=== PATIENT | male | born 1965 | race Caucasian/White ===

== ENCOUNTER 2024-12-06 15:47 | Emergency (ER) | payer SELFPAY ==
[2024-12-06] VITALS (14 sets, daily range): BP systolic 116–134; BP diastolic 62–78; PULSE 74–92; RESP 14–25; TEMP 36.8; O2SAT 96–100; BMI 27.8
[2024-12-06 16:31] LABS: INR 2.3 (0.9-1.3)
[2024-12-06 16:34] LABS: Hematocrit 25.8 % (41-53); Hemoglobin 8.2 g/dL (13.5-17.5); Mean Corpuscular HGB Conc 31.7 % (30-36); Mean Corpuscular Hemoglobin 19.2 PG (26-34); Mean Corpuscular Volume 60.6 fL (80-100); Platelet Count 408 X10^3/uL (150-400); Red Blood Cell Count 4.25 X10^6/uL (4.5-5.9); Red Cell Distribution Width 21.1 % (11.6-14.8); White Blood Cell Count 7.7 X10^3/uL (4.5-11.0)
[2024-12-06 16:35] LABS: Albumin 3.4 g/dL (3.5-5.0); Alkaline Phosphatase 230 U/L (38-126); Blood Urea Nitrogen 9 mg/dL (9-20); Calcium 8.3 mg/dL (8.4-10.2); Carbon Dioxide 26 mmol/L (22-32); Chloride 102 mmol/L (98-107); Estimated Glomerular Filt Rate > 60 mL/min (>60); Globulin 3.4 g/dL (1.7-4.1); Glucose 156 mg/dL (70-100); HEMOLYSIS < 15 (0-50); Lipase 339 U/L (23-300); Potassium 2.8 mmol/L (3.4-5.1); Sodium 135 mmol/L (137-145); Total Protein 6.8 g/dL (6.3-8.2)
[2024-12-06 16:37] LABS: Add Manual Diff / Slide Review YES
[2024-12-06 16:41] LABS: Alanine Aminotransferase 1173 IU/L (<50); Aspartate Aminotransferase 1319 IU/L (17-59); PTT Partial Thromboplastin Tim 37 SECONDS (25.1-36.5)
[2024-12-06 16:51] LABS: Neutrophils Absolute Manual 4697 /uL (3000-5900); Total Cells Counted 100
[2024-12-06 16:53] LABS: Anisocytosis 2+; Hypochromasia 3+; Microcytosis 3+; Smudge Cells 1+; Target Cells 3+; Toxic Granulation Present
[2024-12-06 16:54] LABS: Acanthocytes 1+; Hypersegmented Neutrophils 1+; Ovalocytes 1+; Schistocytes 1+; Tear Drop Cells 1+
[2024-12-06 16:55] LABS: Rouleaux 1+
[2024-12-06 16:56] LABS: Toxic Vacuolation Present
--- NOTE | 2024-12-06 17:12 | EKG_ITS ---
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
--- NOTE | 2024-12-06 17:25 | DI.US.S_ITS ---
PROCEDURE: US ABDOMEN LIMITED INDICATIONS: elevated bili and liver enzymes TECHNIQUE: Real-time focused scanning was performed of the abdomen, with image documentation. COMPARISON: None. FINDINGS: Liver measures 15 cm. Increased heterogeneous hepatic echotexture. Mildly distended main portal vein at 1.6 cm. Cholelithiasis. No sonographic Schaeffer sign. CBD measures 4 mm. Pancreas not well seen due to bowel gas. Right renal cyst without complicated component measuring 2.9 x 2.7 cm. IMPRESSION: Cholelithiasis without sonographic Schaeffer sign. No biliary ductal dilation by ultrasound. Increased hepatic echotexture with heterogeneous parenchyma and distended main portal vein, findings suggestive of hepatocellular disease and high portal pressures. Dictated by: Aditya Ledesma M.D. on 12/06/2024 at 18:27 Approved by: Aditya Ledesma M.D. on 12/06/2024 at 18:29
--- NOTE | 2024-12-06 17:25 | DI.CT.S_ITS ---
PROCEDURE: CT ABDOMEN PELVIS W CON INDICATIONS: elevated bili TECHNIQUE: After the administration of intravenous contrast, axial sections acquired from the lung bases to the pubic symphysis. Coronal and sagittal reformats were performed. For radiation dose reduction, the following was used: automated exposure control, adjustment of mA and/or kV according to patient size. COMPARISON: [facility], US ABDOMEN LIMITED, 12/06/2024, 17:38. FINDINGS: Image quality: Diagnostic Lower chest: Lung bases are unremarkable. Mild atelectasis in the middle lobe. Normal heart size. Liver: Periportal edema. No focal liver lesion identified. Gallbladder and biliary system: Distended gallbladder with cholelithiasis. No biliary ductal dilation. Pancreas: No ductal dilation. There is no discrete mass. Small duodenal diverticulum is seen adjacent to the ampulla Spleen: Prominent at 12-13 cm Adrenals: No discrete nodules Kidneys: No solid mass. No hydronephrosis. Scattered renal cysts. No obstructing calcified stone Vessels and lymph nodes: The main portal vein appears patent. No abdominal aortic aneurysm. Mildly enlarged upper abdominal lymph nodes for example portal caval node measures 1.4 cm. There are mildly enlarged pelvic lymph nodes for example right external iliac chain measures 1.2 cm. Bowel and peritoneum: Mildly distended stomach. No small bowel obstruction. No pathologic ascites or drainable abscess. There is a rectal anal mass. Mildly enlarged perirectal lymph nodes are also seen. Body wall: [id number] bilateral fat containing inguinal hernias. Pelvis: Distended urinary bladder. Heterogeneous mildly enlarged prostate not well assessed on CT. Bones: There are degenerative changes. Enthesopathy at the iliac crests IMPRESSION: Rectal anal mass is suggestive of malignancy. Direct visualization is sampling recommended. There are suspicious upper abdominal and pelvic lymph nodes on the right. There is no discrete liver lesion identified on CT, however there is nonspecific periportal edema which could be seen with hepatitis and hepatocellular disease. No definite biliary ductal dilation. Small duodenal diverticulum is seen adjacent to the ampulla, does not appear obstructing. Other findings above. Dictated by: Aditya Ledesma M.D. on 12/06/2024 at 18:59 Approved by: Aditya Ledesma M.D. on 12/06/2024 at 19:04
[2024-12-06 17:40] LABS: Acetaminophen < 10 ug/mL (10-30); Ethanol (ETOH) < 10 mg/dL
--- NOTE | 2024-12-06 19:16 | DI.MRI.S_ITS ---
PROCEDURE: MR ABDOMEN WO/W CON INDICATIONS: elevated lft's rectal mass, ? ca vs choledocho TECHNIQUE: Coronal HASTE, axial 2D FLASH in- and [id number]; axial breath-hold T2 FSE. Dynamic axial VIBE during the administration of contrast; post-contrast coronal VIBE or 2D FLASH with fat saturation from the hepatic dome to the iliac crests. Optional diffusion weighted imaging and ADC may be performed. COMPARISON: [facility], CT, CT ABDOMEN PELVIS W CON, 12/06/2024, 18:19. FINDINGS: Image quality: Diagnostic Lower chest: No basal effusions Liver: No focal suspicious lesion. Diffuse periportal edema is seen. Gallbladder and biliary system: Gallbladder is distended with a gallstone. CBD does not appear dilated . Pericholecystic edema is seen. The intrahepatic biliary system is mildly prominent. There is a small duodenal diverticulum adjacent to the ampulla Pancreas: No ductal dilation. Spleen: Prominent at 12 cm Adrenals: No discrete nodules Kidneys: Scattered renal cysts. No solid renal mass. No hydronephrosis. Vessels and lymph nodes: No abdominal aortic aneurysm. There are prominent upper abdominal lymph nodes which are indeterminate in the setting of probable malignancy elsewhere. Bowel and peritoneum: No evidence of small bowel obstruction. No pathologic ascites. Body wall: Unremarkable Bones: No suspicious osseous enhancement. IMPRESSION: Cholelithiasis with gallbladder distention and pericholecystic edema. These could be seen with cholecystitis, although no sonographic Schaeffer sign was seen on recent ultrasound. HIDA scan could clarify. Overall CBD is nondilated. However there is mildly prominent appearance of the intrahepatic biliary system, no discrete obstructing mass seen on MRI. ERCP can further evaluate if clinically necessary There is also nonspecific periportal edema which can be seen with hepatocellular disease Other findings above. Dictated by: Aditya Ledesma M.D. on 12/06/2024 at 21:19 Approved by: Aditya Ledesma M.D. on 12/06/2024 at 21:29
--- NOTE | 2024-12-06 19:16 | ED_ITS ---
HPI - General Adult General Chief complaint: Weakness Stated complaint: skin is turning yellow Time Seen by Provider: 12/06/24 18:10 Source: patient, RN notes reviewed and old records reviewed Mode of arrival: Ambulatory Limitations: no limitations History of Present Illness HPI narrative: 59-year-old male history of alcohol use patient states he was decreased has not amount to 3 to 5 times a week in the past year with no other known medical issues presents with complaint of painless jaundice. Patient states his boss noticed today that he was sort of yellow. He states no fever he was occasionally had some chills, no nausea or vomiting. No abdominal pain, no back or flank pain. No chest pain or shortness of breath. He states he had been little bit constipated has not noted changes to bowel movements in terms of color. He has had fatigue and decreased energy. No swelling of extremities. States his knees felt a little bit itchy but he has not had any itchiness overall. States no daily prescription medications. Has not seen a doctor in several years. Had a history of radial nerve surgery 10 or 12 years ago. She was tobacco, states he drinks alcohol 3 or 5 times weekly used to drink 4 5 beers daily until about a year ago. No recreational drugs other than occasional marijuana. He does not have a care physician. Related Data Home Medications Medication Instructions Recorded Confirmed ASPIRIN (Aspirin) 324 mg PO PRN ##0 03/12/10 Allergies Allergy/AdvReac Type Severity Reaction Status Date / Time No Known Drug Allergies Allergy Verified 12/06/24 20:04 Review of Systems Review of Systems ROS Unobtainable: All systems reviewed & are unremarkable except as noted in HPI and below Patient History tobacco type: smokeless tobacco Exam Narrative Exam Narrative: GENERAL: Alert and oriented x three, jaundiced male in no acute distress HEENT: Head normocephalic, atraumatic, EOMI, pupils reactive, face symmetric, moist mucous membranes NECK: Supple, full range of motion CARDIOVASCULAR: Regular rate and rhythm without murmurs, rubs or gallops. RESPIRATORY: Breath sounds equal bilaterally, no wheezes rales or rhonchi. ABDOMEN: Soft, nontender. Normoactive bowel sounds all 4 quadrants. No guarding or rebound, rigidity, no mass : No CVA tenderness EXTREMITIES: Normal range of motion, no clubbing or edema. Neurovascularly intact NEUROLOGICAL: Cranial nerves II through XII grossly intact. Moving all extremities SKIN: Warm, dry, no petechiae, no rashes or lesions. Initial Vital Signs Initial Vital Signs: Vital Signs Temperature 98.3 F 12/06/24 15:54 Pulse Rate 91 H 12/06/24 15:54 Respiratory Rate 14 12/06/24 15:54 Blood Pressure 134/62 12/06/24 15:54 Pulse Oximetry 100 12/06/24 15:54 Oxygen Delivery Method Room Air 12/06/24 15:54 Course Orders Ordered: ED Orders 12/06/24 22:18 Consult to INGREDIENT HANDLER - Software Business Analyst Stat Discontinued Medications Ondansetron HCl (Ondansetron 4 Mg/2 Ml Inj) 4 mg IV NOW PRN PRN Reason: Nausea And Vomiting Ondansetron HCl (Ondansetron 4 Mg Odt) 4 mg PO NOW PRN PRN Reason: Nausea And Vomiting Potassium Chloride (Potassium Chloride 20 Meq Tab) 40 meq PO NOW ONE Stop: 12/06/24 19:39 Last Admin: 12/06/24 20:43 Dose: 40 meq Documented By: MICHELLE Vital Signs Vital signs: Vital Signs - 8 hr 12/06/24 20:46 12/06/24 20:47 12/06/24 20:47 Temperature Pulse Rate 90 92 H Respiratory Rate Blood Pressure 123/78 Pulse Oximetry 97 98 12/06/24 21:00 12/06/24 21:00 12/06/24 21:30 Temperature Pulse Rate 82 80 Respiratory Rate 19 17 Blood Pressure 123/76 Pulse Oximetry 99 99 12/06/24 21:30 12/06/24 22:00 12/06/24 22:00 Temperature Pulse Rate 78 Respiratory Rate 16 Blood Pressure 126/74 126/78 Pulse Oximetry 98 12/06/24 22:28 Temperature 98.2 F Pulse Rate Respiratory Rate Blood Pressure Pulse Oximetry Medical Decision Making Lab Data 12/06/24 16:05 12/06/24 16:05 Labs: Lab Results 12/06/24 Range/Units 16:05 WBC 7.7 (4.5-11.0) X10^3/uL RBC 4.25 L (4.5-5.9) X10^6/uL Hgb 8.2 L (13.5-17.5) g/dL Hct 25.8 L (41-53) % MCV 60.6 L (80-100) fL MCH 19.2 L (26-34) PG MCHC 31.7 (30-36) % RDW 21.1 H (11.6-14.8) % Plt Count 408 H (150-400) X10^3/uL Neut % (Auto) Not Reportable Lymph % (Auto) Not Reportable [place] % (Auto) Not Reportable Eos % (Auto) Not Reportable Baso % (Auto) Not Reportable Lymph # (Auto) Not Reportable [place] # (Auto) Not Reportable Baso # (Auto) Not Reportable Total Counted 100 Seg Neutrophils % 61.0 (38-70) % Lymphocytes % (Manual) 17.0 L (25-45) % Atypical Lymphs % 5.0 H ( - 0) % Monocytes % (Manual) 10.0 (2-11) % Eosinophils % (Manual) 7.0 H (2-4) % Neutrophils # (Manual) 4697 (1334-7885) /uL Hypersegmented Neuts 1+ Smudge Cells 1+ H Toxic Granulation Present H Toxic Vacuolation Present H Plt Morphology Comment RBC Morphology See below Hypochromasia 3+ H Anisocytosis 2+ H Microcytosis 3+ H Target Cells 3+ H Tear Drop Cells 1+ H Ovalocytes 1+ H Acanthocytes (Spur) 1+ Rouleaux 1+ H Schistocytes 1+ H PT 26.0 H (9.4-12.5) SECONDS INR 2.3 H (0.9-1.3) APTT 37 H (25.1-36.5) SECONDS Sodium 135 L (137-145) mmol/L Potassium 2.8 L (3.4-5.1) mmol/L Chloride 102 (98-107) mmol/L Carbon Dioxide 26 (22-32) mmol/L BUN 9 (9-20) mg/dL Creatinine 0.69 (0.66-1.25) mg/dL Estimated GFR > 60 (>60) mL/min BUN/Creatinine Ratio 13.0 (6-22) Glucose 156 H (70-100) mg/dL Calcium 8.3 L (8.4-10.2) mg/dL Total Bilirubin 20.0 H (0.2-1.3) mg/dL AST 1319 H (17-59) IU/L ALT 1173 H (<50) IU/L Alkaline Phosphatase 230 H (38-126) U/L Total Protein 6.8 (6.3-8.2) g/dL Albumin 3.4 L (3.5-5.0) g/dL Globulin 3.4 (1.7-4.1) g/dL Albumin/Globulin Ratio 1.0 (1.0-2.8) Lipase 339 H (23-300) U/L Acetaminophen < 10 (10-30) ug/mL Ethyl Alcohol < 10 ( - 10) mg/dL Urine Dip Bedside Urine Glucose Negative Bedside Urine Bilirubin - Negative Bedside Urine Ketone - Negative Urine Specific Colon 1.015 Bedside Urine Occult Blood - Negative Bedside Urine pH 7.0 Bedside Urine Protein - Negative Bedside Urine Urobilinogen - Negative Bedside Urine Nitrite - Negative Bedside Urine Leukocytes - Negative Esterase Point of care testing: Urine Dip Bedside Urine Glucose Negative Bedside Urine Bilirubin - Negative Bedside Urine Ketone - Negative Urine Specific Colon 1.015 Bedside Urine Occult Blood - Negative Bedside Urine pH 7.0 Bedside Urine Protein - Negative Bedside Urine Urobilinogen - Negative Bedside Urine Nitrite - Negative Bedside Urine Leukocytes - Negative Esterase ECG Data Attestation: I personally reviewed and interpreted this ECG as follows: Interpretation: Sinus rhythm rate of 76 AL 160 QRS 88 QTC of [address] elevation or depression. MDM Narrative Medical decision making narrative: 59-year-old male with painless jaundice, patient was afebrile. EKG shows sinus rhythm nonspecific change. Labs show white count of 7.7 hemoglobin 8.2 microcytic, platelets are 408, patient has 5% atypicals with a 1+ much cells. INR is 2.3 with a PTT of 37. Sodium of 135 potassium 2.8 chloride 102 CO2 is 26 BUN 9 creatinine 0.69 glucose is 156 bilirubin is 20 with a AST of 13 19, ALT 1173, alk-phos of 230 lipase is 339. ETOH and acetaminophen is negative. Hepatitis panel pending Abdominal ultrasound, liver measures 15 cm increased heterogeneous hepatic echotexture mildly distended main portal vein at 1.6 cm no sonographic Schaeffer's sign 4 mm CBD right renal cyst without complicated component cholelithiasis without Schaeffer's sign no biliary ductal dilation. Increased hepatic echotexture with a heterogeneous parenchyma and distended main portal vein suggesting hepatocellular and high portal pressures. CT abdomen pelvis shows rectal anal mass suggesting malignancy suspicious upper abdominal and pelvic lymph nodes on the right no discrete liver enzyme on CT however nonspecific periportal edema seen with hepatitis and had hepatocellular disease no definite biliary ductal dilation small duodenal diverticulum adjacent to ampulla does not appear to be obstructing. MRCP was obtained shows cholelithiasis with gallbladder distention pericholecystic edema could be seen with cholecystitis although no sonographic Schaeffer's sign seen on recent ultrasound HIDA scan clarify overall CBD is nondilated mild prominence intrahepatic biliary system no discrete obstructing mass seen on MR. Nonspecific periportal edema which can be seen with hepatocellular disease. MELD score 28 points, 19.6% 3 month mortality. 89-year-old male painless jaundice has some gallbladder distention pericholecystic edema with cholelithiasis but is nontender does have a history of alcohol use CBD is done dilated does have hepatitis panel pending. Consult with gastroenterology, Dr. Lane. Reviewed findings including labs imaging workup suspect likely acute alcoholic hepatitis notes gallbladder changes could be secondary to this this time supportive care cessation of alcohol does need follow up to have rectal mass biopsied but with his INR elevated would wait until this improves. Discussed with patient to be kept his observation versus outpatient he would defer this to the patient but could potentially go home they are happy to follow up with the patient. Spoke with patient he would prefer to follow-up reviewed all recommendations from Gastroenterology patient feels comfortable this plan. We will have social work reach out as he states he does not have insurance currently. We will give contact set up primary care as well strict return precautions reviewed all the patient's labs and findings from today he does not need follow up to have his labs rechecked. Discharge Plan Departure Patient Disposition: Home Clinical Impression: Painless jaundice Instructions: DI for Jaundice Activity Restrictions/Additional Instructions: Your workup shows your liver is not functioning properly some of this is from alcohol use and you do need to stop drinking alcohol. There is a hepatitis panel pending this will help evaluate if you have any underlying hepatitis B or C. Your workup also did show a rectal mass this needs to be followed up and have a biopsy but your INR we will need to improve before this can occur. Your labs do show that you are anemic your hemoglobin today is 8.2 your electrolytes were also low with a potassium of 2.8 you did have some replaced orally today. Avoid any Tylenol or acetaminophen containing products. Please call to set up follow up with Gastroenterology, contacts included below. I spoke with Dr. Lane today and they are happy to follow up with you. I also we will ask our social services technician to reach out to to help set up follow up. Please return for fevers, any new abdominal back or flank pain, any vomiting, lightheadedness or passing out, new swelling of your extremities, black or bloody stools or other new or concerning changes. Prescriptions: No Action ASPIRIN (Aspirin) 324 mg PO PRN Qty: 0 Referrals: Jose Lane MD [Non-Staff] - Stand Alone Forms: Patient Portal/API/Survey
[2024-12-06] MEDS: POTASSIUM CHLORIDE 20 MEQ TAB 40 MEQ PO (20:43)
--- NOTE | 2024-12-07 15:37 | CM.SWNOTE ---
ED HOSPITAL RECRUITER Follow Up Note HOSPITAL RECRUITER receives follow up consult as patient does not have insurance or PCP at this time. HOSPITAL RECRUITER calls patient and leaves VM with information to sign up for insurance, patient to call back if further assistance is needed. Dali Yu, METALLURGIST PROCESS
[2024-12-08 05:40] LABS: HBsAg Screen Negative (Negative); Hepatitis A Antibody IgM Negative (Negative); Hepatitis B Core Antibody IgM Negative (Negative); Hepatitis C Antibody Non Reactive (Non Reactive)
== END 2024-12-06 22:27 | disposition home or self-care (01) ==
PROVIDERS: Emergency Medicine; Emergency Provider Emergency Medicine
DX: R17 Unspecified jaundice (principal); R53.1 Weakness; R79.89 Other specified abnormal findings of blood chemistry; K81.0 Acute cholecystitis; K62.89 Other specified diseases of anus and rectum
CPT/HCPCS: 36415; 74177; 74183; 76705; 80053; 80074; 80320; 80329; 81003; 83690; 85007; 85025; 85610; 85730; 93005; 93010; 99283; 99284; A9579; G0480; Q9967